=== PATIENT | female | born 1985 | race Caucasian/White ===

== ENCOUNTER 2018-06-03 06:19 | Emergency (ER) | payer OTHER ==
[2018-06-03] MEDS: DEXAMETHASONE 10 MG/ML 1 ML INJ IM (07:05)
== END 2018-06-03 07:08 | disposition home or self-care (01) ==
LOC: FTE 06:19
DX: J02.9 Acute pharyngitis, unspecified (principal)
CPT/HCPCS: 96372; 99284-25